=== PATIENT | female | born 1990 | race Caucasian/White ===

== ENCOUNTER 2016-12-25 21:13 | Inpatient (IN) | payer OTHER ==
[~2016-12-25] VITALS: Ht 154.9 cm; Wt 76.7 kg
[~2016-12-25 21:13] MED LIST: OXYTOCIN 30 UNITS/LACT RINGERS 500 ML IV ONE; RINGERS SOLUTION,LACTATED 1,000 ML IV PRN; RINGERS SOLUTION,LACTATED 1,000 ML IV SCH
[2016-12-25] MEDS ORDERED: CITRIC ACID/SODIUM CITRATE 30 ML SOLUTION UDCUP PO PRN (21:15)
[2016-12-25] MEDS ORDERED: LIDOCAINE HCL/PF 1% 30 ML VIAL INJ PRN (21:15)
[2016-12-25] MEDS ORDERED: METOCLOPRAMIDE HCL 5 MG/ML 2 ML VIAL IVP PRN (21:15)
[2016-12-25] MEDS ORDERED: FentaNYL CITRATE-PF 100 MCG/2 ML VIAL IVP PRN (21:15)
[2016-12-25 22:11] LABS: BASOPHILS # (AUTO) 0.04 K/uL (0.00-0.20); BASOPHILS % (AUTO) 0.2 % (0.0-2.0); EOSINOPHILS # (AUTO) 0.07 K/uL (0.00-0.70); EOSINOPHILS % (AUTO) 0.44 % (1.0-6.0); HEMATOCRIT 32.6 % (36-46); HEMOGLOBIN 11.7 g/dL (12.0-16.0); LYMPHOCYTES # (AUTO) 2.1 K/uL (1.0-4.8); LYMPHOCYTES % (AUTO) 12.7 % (22.0-44.0); MEAN CORPUSCULAR HEMOGLOBIN 29.6 pg (26.0-34.0); MEAN CORPUSCULAR HGB CONC 35.8 G/dL (31.0-37.0); MEAN CORPUSCULAR VOLUME 83 fL (80-100); MONOCYTES % (AUTO) 6.1 % (2.0-9.0); NEUTROPHILS # (AUTO) 13.3 K/uL (1.8-7.7); NEUTROPHILS % (AUTO) 80.6 % (40.0-70.0); PLATELET COUNT (AUTO) 245 K/uL (150-450); RED BLOOD CELL COUNT(AUTO) 3.94 MIL/uL (4.00-5.20); RED CELL DISTRIBUTION WIDTH 17.8 % (11.5-14.5); WHITE BLOOD COUNT (AUTO) 16.5 K/uL (4.5-11.0)
[2016-12-25 22:45] LABS: RBC MORPHOLOGY COMMENT ABNORMAL RBC MORPH
[2016-12-25] MEDS ORDERED: OXYTOCIN 30 UNITS/LACT RINGERS 500 ML IV PRN (23:44)
[2016-12-26] MEDS ORDERED: FentaNYL/BUPIV 0.125%/NS/PF 200 ML ED ONE (00:37)
[2016-12-26] MEDS ORDERED: BUPIVACAINE HCL/PF 0.25% 30 ML VIAL ONE (00:38)
[2016-12-26] MEDS ORDERED: FentaNYL/BUPIV 0.125%/NS/PF 200 ML ED PRN (01:57)
[2016-12-26] MEDS ORDERED: DiphenhydrAMINE HCL 50 MG/ML VIAL IVP PRN (02:00)
[2016-12-26] MEDS ORDERED: ONDANSETRON HCL 4 MG/2 ML VIAL IVP PRN (02:00)
[2016-12-26] MEDS ORDERED: BENZOCAINE 20%/MENTHOL 56 GM SPRAY CANISTER TP PRN (05:15)
[2016-12-26] MEDS ORDERED: GLYCERIN/WITCH HAZEL LEAF 40 PADS JAR TP PRN (05:15)
[2016-12-26] MEDS ORDERED: OxyCODONE HCL/ACETAMINOPHEN 5-325 MG TABLET PO PRN ×2 (05:15)
[2016-12-26] MEDS ORDERED: OXYTOCIN 30 UNITS/LACT RINGERS 500 ML IV ONE (05:15)
[2016-12-26] MEDS ORDERED: LANOLIN 7 GM OINTMENT TP PRN (05:15)
[2016-12-26 06:59] VITALS: BP 113/70
[2016-12-26] MEDS ORDERED: OXYGEN THERAPY IH SCH (08:00)
[2016-12-26] MEDS: MAGNESIUM HYDROXIDE SUSPENSION 30 ML UDCUP PO PRN ×2 (09:19→20:12)
[2016-12-26] MEDS: IBUPROFEN 800 MG TABLET PO PRN ×2 (13:54→20:12)
[2016-12-27] MEDS: IBUPROFEN 800 MG TABLET PO PRN (02:57)
[2016-12-27 05:12] LABS: BASOPHILS # (AUTO) 0.03 K/uL (0.00-0.20); BASOPHILS % (AUTO) 0.3 % (0.0-2.0); EOSINOPHILS # (AUTO) 0.16 K/uL (0.00-0.70); EOSINOPHILS % (AUTO) 1.37 % (1.0-6.0); HEMATOCRIT 27.3 % (36-46); HEMOGLOBIN 9.8 g/dL (12.0-16.0); LYMPHOCYTES # (AUTO) 2.2 K/uL (1.0-4.8); LYMPHOCYTES % (AUTO) 19.1 % (22.0-44.0); MEAN CORPUSCULAR HEMOGLOBIN 29.4 pg (26.0-34.0); MEAN CORPUSCULAR HGB CONC 35.9 G/dL (31.0-37.0); MEAN CORPUSCULAR VOLUME 82 fL (80-100); MONOCYTES # (AUTO) 0.8 K/uL (0.1-1.0); MONOCYTES % (AUTO) 6.7 % (2.0-9.0); NEUTROPHILS # (AUTO) 8.4 K/uL (1.8-7.7); NEUTROPHILS % (AUTO) 72.6 % (40.0-70.0); RED BLOOD CELL COUNT(AUTO) 3.33 MIL/uL (4.00-5.20); WHITE BLOOD COUNT (AUTO) 11.6 K/uL (4.5-11.0)
[2016-12-27] MEDS: MAGNESIUM HYDROXIDE SUSPENSION 30 ML UDCUP PO PRN (08:23)
[2016-12-27] MEDS ORDERED: IBUP-1547 PO (11:16)
[2016-12-27] MEDS ORDERED: DSS100 PO (11:17)
== END 2016-12-27 13:00 | disposition home or self-care (01) | DRG 560 ==
LOC: 4S 21:13 → OBSVTOIN 21:13
PROVIDERS: ADMIT Obstetrics & Gynecology; ATTEND Obstetrics & Gynecology
PROC: 10E0XZZ Delivery of Products of Conception, External Approach (ICD-10-PCS; principal; 2016-12-26)
PROC: 0KQM0ZZ Repair Perineum Muscle, Open Approach (ICD-10-PCS; 2016-12-26)
PROC: 10907ZC Drainage of Amniotic Fluid, Therapeutic from Products of Conception, Via Natural or Artificial Opening (ICD-10-PCS; 2016-12-26)
PROC: 3E0S3CZ (ICD-10-PCS; 2016-12-26)
PROC: 00HU33Z Insertion of Infusion Device into Spinal Canal, Percutaneous Approach (ICD-10-PCS; 2016-12-26)
DX: O77.0 Labor and delivery complicated by meconium in amniotic fluid (principal); O70.1 Second degree perineal laceration during delivery; Z37.0 Single live birth; Z3A.39 39 weeks gestation of pregnancy
CPT/HCPCS: 86850; 86900; 86901; J2590; J3490; J7120

== ENCOUNTER 2017-05-30 21:10 | Emergency (ER) | payer OTHER ==
[~2017-05-30] VITALS: Ht 154.9 cm; Wt 62.3 kg
[~2017-05-30 21:10] MED LIST changes: +DSS100 PO; +IBUP-2071 PO; -OXYTOCIN 30 UNITS/LACT RINGERS 500 ML IV ONE; -RINGERS SOLUTION,LACTATED 1,000 ML IV PRN; -RINGERS SOLUTION,LACTATED 1,000 ML IV SCH
[2017-05-30] MEDS ORDERED: KETOROLAC TROMETHAMINE 60 MG/2 ML VIAL IM ONE (23:00)
[2017-05-30] MEDS ORDERED: ACETAMINOPHEN 500 MG TABLET PO ONE (23:00)
[2017-05-31 00:16] VITALS: BP 127/83
== END 2017-05-31 00:22 | disposition home or self-care (01) ==
LOC: EMS 21:11
DX: S13.4XXA Sprain of ligaments of cervical spine, initial encounter (principal); X58.XXXA Exposure to other specified factors, initial encounter; Y93.89 Activity, other specified; Y92.89 Other specified places as the place of occurrence of the external cause; Y99.8 Other external cause status
CPT/HCPCS: 96372; 99283; J1885

== ENCOUNTER 2018-11-08 12:10 | Inpatient (IN) | payer MEDICAID ==
[~2018-11-08] VITALS: Ht 154.9 cm; Wt 79.8 kg
[2018-11-08] MEDS ORDERED: OXYTOCIN 30 UNITS/LACT RINGERS 500 ML IV ONE (12:36)
[2018-11-08] MEDS ORDERED: RINGERS SOLUTION,LACTATED 1,000 ML IV PRN (12:36)
[2018-11-08] MEDS ORDERED: RINGERS SOLUTION,LACTATED 1,000 ML IV SCH (12:36)
[2018-11-08] MEDS ORDERED: CITRIC ACID/SODIUM CITRATE 30 ML SOLUTION UDCUP PO PRN (12:45)
[2018-11-08] MEDS ORDERED: METHYLERGONOVINE MALEATE 0.2 MG/ML VIAL IM PRN (12:45)
[2018-11-08] MEDS ORDERED: METOCLOPRAMIDE HCL 5 MG/ML 2 ML VIAL IVP PRN (12:45)
[2018-11-08] MEDS ORDERED: PREN1TAB80 PO (13:24)
[2018-11-08 13:30] VITALS: BP 125/69
[2018-11-08] MEDS ORDERED: ROPIVACAINE HCL/PF 0.2% 0 ML ED ONE (16:04)
[2018-11-08 16:09] LABS: BASOPHILS % (AUTO) 0.3 % (0.0-2.0); EOSINOPHILS % (AUTO) 0.2 % (1.0-6.0); HEMATOCRIT 31.3 % (36-46); LYMPHOCYTES % (AUTO) 5.5 % (22.0-44.0); MEAN CORPUSCULAR HEMOGLOBIN 28.8 pg (26.0-34.0); MEAN CORPUSCULAR HGB CONC 35.1 G/dL (31.0-37.0); MEAN CORPUSCULAR VOLUME 82 fL (80-100); MONOCYTES # (AUTO) 0.9 K/uL (0.1-1.0); MONOCYTES % (AUTO) 5.2 % (2.0-9.0); NEUTROPHILS # (AUTO) 16.2 K/uL (1.8-7.7); PLATELET COUNT (AUTO) 248 K/uL (150-450); RED BLOOD CELL COUNT(AUTO) 3.81 MIL/uL (4.00-5.20); RED CELL DISTRIBUTION WIDTH 19.1 % (11.5-14.5)
[2018-11-08 16:10] LABS: NEUTROPHILS % (AUTO) 88.8 % (40.0-70.0)
[2018-11-08] MEDS ORDERED: OxyCODONE HCL/ACETAMINOPHEN 5-325 MG TABLET PO PRN ×2 (17:00)
[2018-11-08] MEDS ORDERED: BENZOCAINE 20%/MENTHOL 56 GM SPRAY CANISTER TP PRN (17:00)
[2018-11-08] MEDS ORDERED: LANOLIN 7 GM OINTMENT TP PRN (17:00)
[2018-11-08] MEDS ORDERED: GLYCERIN/WITCH HAZEL LEAF 40 PADS JAR TP PRN (17:00)
[2018-11-08] MEDS: IBUPROFEN 600 MG TABLET PO PRN (17:47)
[2018-11-08] MEDS ORDERED: OXYGEN THERAPY IH SCH (20:00)
[2018-11-09] MEDS: IBUPROFEN 600 MG TABLET PO PRN (00:25)
[2018-11-09] MEDS ORDERED: RINGERS SOLUTION,LACTATED 1,000 ML IV ONE (07:12)
[2018-11-09] MEDS ORDERED: BUPIVACAINE HCL/DEX-WATER/PF 0.75% 2 ML AMP ONE (09:14)
[2018-11-09] MEDS ORDERED: ACETAMINOPHEN 1000 MG/ISO-OSM 100 ML IV ONE (09:14)
[2018-11-09] MEDS ORDERED: BUPIVACAINE 0.25%/EPI 1:200,000/PF 10 ML VIAL ONE (09:54)
[2018-11-09] MEDS ORDERED: HYDROmorphone 2 MG/ML SYRINGE IVP PRN ×2 (10:45)
[2018-11-09] MEDS ORDERED: FentaNYL CITRATE-PF 100 MCG/2 ML VIAL IVP PRN (10:45)
[2018-11-09] MEDS ORDERED: OxyCODONE HCL/ACETAMINOPHEN 10-325 MG TABLET PO PRN (10:45)
[2018-11-09] MEDS ORDERED: MEPERIDINE-PF 25 MG/ML VIAL IVP PRN (10:45)
[2018-11-09] MEDS: ACETAMINOPHEN 500 MG TABLET PO SCH (17:38)
[2018-11-09] MEDS: MAGNESIUM HYDROXIDE SUSPENSION 30 ML UDCUP PO SCH (22:35)
[2018-11-09] MEDS: KETOROLAC TROMETHAMINE 15 MG/ML VIAL IVP SCH (22:36)
[2018-11-10] MEDS: ACETAMINOPHEN 500 MG TABLET PO SCH (02:42)
[2018-11-10] MEDS: KETOROLAC TROMETHAMINE 15 MG/ML VIAL IVP SCH (05:16)
[2018-11-10] MEDS ORDERED: ONDANSETRON HCL 4 MG/2 ML VIAL IVP ONE (05:47)
[2018-11-10] MEDS ORDERED: MIDAZOLAM HCL 2 MG/2 ML VIAL IVP ONE (05:47)
[2018-11-10] MEDS ORDERED: KETOROLAC TROMETHAMINE 60 MG/2 ML VIAL IM ONE (05:47)
[2018-11-10] MEDS ORDERED: EPHEDrine SULFATE 50 MG/ML VIAL IM ONE (05:47)
[2018-11-10] MEDS: MAGNESIUM HYDROXIDE SUSPENSION 30 ML UDCUP PO SCH (08:30)
[2018-11-10] MEDS ORDERED: IBUP-2071 PO (10:01)
[2018-11-10] MEDS ORDERED: DSS100 PO (10:01)
[2018-11-10] MEDS ORDERED: FERR-89 PO (10:02)
== END 2018-11-10 11:10 | disposition home or self-care (01) | DRG 541 ==
LOC: 4S 12:10 → OBSVTOIN 12:10
PROVIDERS: ADMIT Obstetrics & Gynecology; ATTEND Obstetrics & Gynecology
PROC: 10E0XZZ Delivery of Products of Conception, External Approach (ICD-10-PCS; principal; 2018-11-08)
PROC: 3E0R3BZ Introduction of Anesthetic Agent into Spinal Canal, Percutaneous Approach (ICD-10-PCS; 2018-11-08)
PROC: 00HU33Z Insertion of Infusion Device into Spinal Canal, Percutaneous Approach (ICD-10-PCS; 2018-11-08)
PROC: 0UB70ZZ Excision of Bilateral Fallopian Tubes, Open Approach (ICD-10-PCS; 2018-11-09)
DX: O24.429 Gestational diabetes mellitus in childbirth, unspecified control (principal); Z30.2 Encounter for sterilization; Z37.0 Single live birth; Z3A.38 38 weeks gestation of pregnancy
CPT/HCPCS: 86850; 86900; 86901; 88302; J0131; J0690; J1885; J2250; J2405; J2795; J3490; J7120

== ENCOUNTER 2021-12-08 09:26 | Emergency (ER) | payer MEDICAID ==
[~2021-12-08] VITALS: Ht 154.9 cm; Wt 59.1 kg
[2021-12-08] VITALS (9 sets, daily range): BP systolic 100–128; BP diastolic 57–70
[~2021-12-08 09:26] MED LIST changes: +FERR325T27 PO; +PREN1TAB80 PO
[2021-12-08 10:34] LABS: COVID AG,FIA SOURCE NASAL SWAB
[2021-12-08 11:06] LABS: INFLUENZA TYPE A NEGATIVE FOR TYPE A (NEGATIVE); INFLUENZA TYPE B NEGATIVE FOR TYPE B (NEGATIVE)
[2021-12-08] MEDS ORDERED: SODIUM CHLORIDE 0.9% 1,000 ML IV ONE (12:15)
[2021-12-08 12:22] LABS: BASOPHILS % (AUTO) 0.3 % (0.0-2.0); EOSINOPHILS % (AUTO) 0.5 % (1.0-6.0); LYMPHOCYTES # (AUTO) 2.2 K/uL (1.0-4.8); LYMPHOCYTES % (AUTO) 27.2 % (22.0-44.0); MEAN CORPUSCULAR HEMOGLOBIN 25.7 pg (26.0-34.0); MEAN CORPUSCULAR HGB CONC 34.7 G/dL (31.0-37.0); MEAN CORPUSCULAR VOLUME 74 fL (80-100); MONOCYTES # (AUTO) 0.6 K/uL (0.1-1.0); MONOCYTES % (AUTO) 6.8 % (2.0-9.0); NEUTROPHILS # (AUTO) 5.3 K/uL (1.8-7.7); NEUTROPHILS % (AUTO) 65.2 % (40.0-70.0); PLATELET COUNT (AUTO) 268 K/uL (150-450); RED BLOOD CELL COUNT(AUTO) 2.52 MIL/uL (4.00-5.20); RED CELL DISTRIBUTION WIDTH 22.4 % (11.5-14.5)
[2021-12-08 12:34] LABS: ANION GAP 5 mmol/L (8-16); CALCIUM, TOTAL 7.7 mg/dL (8.8-10.5); CARBON DIOXIDE 26 mmol/L (22-29); CHLORIDE 101 mmol/L (98-107); CREATININE 0.59 mg/dL (0.60-1.30); GLUCOSE,RANDOM 88 mg/dL (70-110); SODIUM SERUM 132 mmol/L (136-145); UREA NITROGEN, BLOOD 5 mg/dL (7-18)
[2021-12-08 12:40] LABS: HEMATOCRIT 18.7 % (36-46); HEMOGLOBIN 6.5 g/dL (12.0-16.0)
[2021-12-08 12:41] LABS: APPEARANCE,URINE CLEAR (CLEAR); BILIRUBIN,URINE NEGATIVE (NEGATIVE); GLUCOSE, URINE (UA) NEGATIVE (NEGATIVE); KETONES,URINE NEGATIVE (NEGATIVE); LEUKOCYTE ESTERASE ,URINE NEGATIVE (NEGATIVE); NITRATE,URINE NEGATIVE (NEGATIVE); OCCULT BLOOD,URINE NEGATIVE (NEGATIVE); PH,URINE 7.5 (5.0-8.0); PROTEIN,URINE NEGATIVE (NEGATIVE)
[2021-12-08 12:45] LABS: BACTERIA,URINE None Seen /HPF (None Seen); RBC,URINE None Seen /HPF (0-2); WBC,URINE None Seen /HPF (0-5)
[2021-12-08 12:45] LABS: GLOMERULAR FILTR. RATE CALC > 60 mL/min (>60)
[2021-12-08 12:51] LABS: ALANINE AMINOTRANSFERASE 73 U/L (12-78); ALBUMIN 3.3 g/dL (3.4-5.0); ALKALINE PHOSPHATASE 101 U/L (46-116); ASPARTATE AMINOTRANSFERASE 54 U/L (15-37); BILIRUBIN,TOTAL 1.5 mg/dL (0.1-1.0); HCG,QUANTITATIVE < 1 mIU/mL (0-6); TOTAL PROTEIN, SERUM 6.9 g/dL (6.4-8.2)
[2021-12-08 13:22] LABS: % IRON SATURATION 10.2 % (22-44)
[2021-12-08] MEDS ORDERED: FERR325T27 PO (18:48)
== END 2021-12-08 19:06 | disposition home or self-care (01) ==
LOC: EMS 09:29
DX: D64.9 Anemia, unspecified (principal); Z20.822 Contact with and (suspected) exposure to COVID-19
CPT/HCPCS: 99285; 36430; 96360; 71046; 87426; 80053; 81001; 83540; 83550; 84702; 85025; 87804; 86850; 86900; 86901; 86923; 36415; P9016; J7030